=== PATIENT | female | born 2000 | race Caucasian/White ===

== ENCOUNTER 2025-10-01 04:34 | Inpatient (IN) ==
[2025-10-01] MEDS: LACTATED RINGER'S 1,000 ML IV PRN (06:22)
[2025-10-01] MEDS: ONDANSETRON INJ 2 MG/ML 2 ML VIAL IV PRN (06:22)
[2025-10-01] MEDS ORDERED: LACTATED RINGER'S 1,000 ML IV PRN (06:47)
[2025-10-01] MEDS ORDERED: LIDOCAINE 1% LOCAL 20 ML VIAL INFIL PRN (06:47)
[2025-10-01 07:26] LABS: Hematocrit (blood only) 33.5 % (37.0-47.0); Hemoglobin 11.5 g/dL (12.0-16.0); Mean Corpuscular Hemoglobin 27.5 pg (25.0-34.0); Mean Corpuscular Volume 80.1 fL (80.0-100.0); Platelet Count 190 K/uL (130-400); RDW Standard Deviation 36.7 fL (36.4-46.3); Red Blood Count 4.18 M/uL (4.20-5.40); White Blood Count 12.82 K/ul (4.8-10.8)
[2025-10-01] MEDS: OXYTOCIN 30 UNITS/NSS 30 UNITS/500 ML BAG IV PRN (08:18)
--- NOTE | 2025-10-01 08:31 | Delivery Summary ---
Vaginal Delivery Summary Date of Service October 01, 2025 Vaginal Delivery Summary and 1st Degree LAC Spontaneous delivery the patient arrived at 37 weeks 1 day group B strep positive and was started on Ancef as she was francy then a ruptured membrane spontaneously the patient then requested epidural but she progressed very quickly this was her first baby she progressed to fully dilated she had requested an epidural but there was not time for that she pushed over a few con tractions delivering a baby in occiput anterior position there was no nuchal cord there was some thin meconium mouth was suctioned after delivery of the head with bulb gentle traction on the baby no excessive force easy delivery live vigorous female infant Cord clamped and cut cord blood obtained placenta removed with traction IV Pitocin started small first-degree tear repaired with 3-0 Vicryl sponge and instrument counts correct QBL per nursing record [id number] Vaginal Delivery Charge Delivery Type Details: and 1st Degree LAC
[2025-10-01] MEDS ORDERED: IBUPROFEN 600 MG TAB PO PRN (08:54)
[2025-10-01] MEDS ORDERED: OXYTOCIN 30 UNITS/NSS 30 UNITS/500 ML BAG IV PRN (08:54)
[2025-10-01] MEDS ORDERED: HYDROCORTISONE ACETATE 25 MG SUPP PR PRN (08:54)
[2025-10-01] MEDS ORDERED: LACTATED RINGER'S 1,000 ML IV SCH (08:54)
[2025-10-01 09:00] VITALS: RESP 18
[2025-10-01] MEDS: BUPIVACAINE 0.25% PF 30 ML VIAL ONE (09:47)
[2025-10-01] MEDS: LIDOCAINE 2%/EPINEPHRINE 1:200,000 20 ML PF ONE (09:48)
[2025-10-01] MEDS: DIPHTHER/TETAN/PERTUS Vaccine (Tdap, Adol/Adult) 0.5mL IM ONE (09:48)
[2025-10-01] MEDS: SODIUM CHLORIDE 0.9% PF INJ 10 ML VIAL ONE (09:48)
[2025-10-01] MEDS: fentANYL 2 MCG/ML BUPIVacaine 0.125%-NSS 100ML BAG ONE (09:48)
[2025-10-01] MEDS: SERTRALINE HCL 100 MG TABLET PO SCH (09:54)
[2025-10-01] MEDS: LEVOTHYROXINE SODIUM 175 MCG TABLET PO SCH (09:54)
[2025-10-01] MEDS: BENZOCAINE 20% SPRY 85 APPLN/85 GM CAN EXT PRN (09:54)
[2025-10-01] MEDS: DOCUSATE SODIUM 100 MG CAP PO SCH (21:22)
[2025-10-01] MEDS: ACETAMINOPHEN 325 MG TAB PO PRN (21:39)
[2025-10-02 04:16] VITALS: O2SAT 98
--- NOTE | 2025-10-02 06:30 | Obstetrical Progress Note ---
Date of Service October 02, 2025 Results & Data Vital Signs (Past 12 Hours) Vital Signs Temp Pulse Resp BP Pulse Ox O2 Del Method 10/02/25 04:10 36.6 C 97 H 18 112/75 98 Room Air 10/02/25 00:18 36.7 C 95 H 18 124/82 97 Room Air 10/01/25 20:50 36.7 C 10/01/25 19:15 37.6 C H 99 H 18 129/85 98 Room Air
[2025-10-02 07:01] LABS: Hematocrit (blood only) 29.7 % (37.0-47.0); Hemoglobin 9.9 g/dL (12.0-16.0); Mean Corpuscular Hemoglobin 27.4 pg (25.0-34.0); Mean Corpuscular Volume 82.3 fL (80.0-100.0); Platelet Count 156 K/uL (130-400); RDW Standard Deviation 38.9 fL (36.4-46.3); Red Blood Count 3.61 M/uL (4.20-5.40); White Blood Count 9.54 K/ul (4.8-10.8)
--- NOTE | 2025-10-02 07:16 | Obstetrical Progress Note ---
Date of Service October 02, 2025 Assessment & Plan (1) (spontaneous vaginal delivery): Plan PPD#1 Desires DC home today Plan for 6w PPV Admission and Anticipated Discharge Date Admission Date: October 01, 2025 Subjective Doing well, meeting milestones, no concerns. Review of Systems Review of Systems: All systems reviewed & are unremarkable except as noted in HPI & below Physical Exam Constitutional: WD/WN, vitals as above healthy appearing Respiratory: normal respiratory effort Gastrointestinal (Abdomen): Inspection/Auscultation: abdomen not distended Percussion/Palpation: abdomen soft; abdomen nontender and no guarding Fundus firm Psychiatric: Orientation: alert and oriented x 3 Results & Data Vital Signs (Past 12 Hours) Vital Signs Temp Pulse Resp BP Pulse Ox O2 Del Method 10/02/25 04:10 36.6 C 97 H 18 112/75 98 Room Air 10/02/25 00:18 36.7 C 95 H 18 124/82 97 Room Air 10/01/25 20:50 36.7 C PG Care Time/CCT Total # of Minutes Spent Total Time Spent with Patient: Total time spent is greater than 50% in coordination of care (as documented) at patient's floor/unit and/or counseling patient: Coding Level of Care Code None Diagnoses (spontaneous vaginal delivery) O80
[2025-10-02] MEDS ORDERED: PRENATAL VITAMIN 1 TAB PO SCH (08:00)
[2025-10-02 08:36] VITALS: BP 135/85; PULSE 93; TEMP 97.7
== END 2025-10-02 14:00 | disposition home or self-care (01) | DRG 807 ==
LOC: OPB 04:34 → 4S1 04:41 → 4E2 10:44